=== PATIENT | female | born 1970 | race Caucasian/White ===

== ENCOUNTER 2021-04-17 14:10 | Outpatient (CLI) | payer OTHER ==
[2021-04-17] MEDS ORDERED: ATOR10TA9 PO (14:55)
[2021-04-17] MEDS ORDERED: Iron PO (14:55)
[2021-04-17] MEDS ORDERED: ESCI10TA97 PO (14:55)
[2021-04-17] MEDS ORDERED: LISI2.5T12 PO (14:55)
[2021-04-17] MEDS ORDERED: MINO50TA2 PO (14:55)
[2021-04-17] MEDS ORDERED: ARIP10TA33 PO (14:55)
[2021-04-17] MEDS ORDERED: METF500T17 PO (14:55)
[2021-04-17] MEDS ORDERED: FENO160T PO (14:55)
[2021-04-17] MEDS ORDERED: BUPR300T94 PO (14:55)
[2021-04-17 15:13] LABS: ALANINE AMINOTRANSFERASE 29 U/L (12-78); ALBUMIN 3.6 g/dL (3.4-5.0); ANION GAP 5 mmol/L (5-15); CHLORIDE 106 mmol/L (98-107); CREATININE 0.96 mg/dL (0.55-1.02)
[2021-04-17 15:18] LABS: ALKALINE PHOSPHATASE 51 U/L (45-117); BILIRUBIN,TOTAL 0.3 mg/dL (0.2-1.0); TOTAL PROTEIN 7.3 g/dL (6.4-8.2)
[2021-04-17 15:30] LABS: BASOPHILS % (AUTO) 1 % (0-1); EOSINOPHILS % (AUTO) 2 % (1-7); LYMPHOCYTES % (AUTO) 28 % (22-44); MEAN CORPUSCULAR HEMOGLOBIN 29.8 pg (27.0-34.8); MEAN CORPUSCULAR HGB CONC 33.2 g/dL (32.4-35.8); MEAN PLATELET VOLUME 8.3 fL (7.4-10.4); MONOCYTES % (AUTO) 7 % (2-9); NEUTROPHILS % (AUTO) 62 % (42-75); PLATELET COUNT 305 x10^3/uL (130-400); RED BLOOD COUNT 4.99 x10^6/uL (3.82-5.3); RED CELL DISTRIBUTION WIDTH 14.4 % (9.6-15.2)
[2021-04-23] MEDS ORDERED: MIDAZOLAM 1 MG/ML, 2ML ONE (12:44)
[2021-04-23] MEDS ORDERED: KETOROLAC 30 MG/1 ML ONE (12:44)
[2021-04-23] MEDS ORDERED: FENTANYL PF 250 MCG/5ML ONE ×2 (12:44→15:25)
[2021-04-23] MEDS ORDERED: BUPIVACAINE/PF 0.25% ONE ×2 (12:45)
[2021-04-23] MEDS ORDERED: NEOSTIGMINE 1 MG/ML, 10ML ONE (12:55)
[2021-04-23] MEDS ORDERED: PROPOFOL 10 MG/ML, 20ML ONE (12:55)
[2021-04-23] MEDS ORDERED: GLYCOPYRROLATE 0.2MG/1ML, 5ML ONE (12:55)
[2021-04-23] MEDS ORDERED: ONDANSETRON 2MG/ML, 2ML ONE (12:55)
[2021-04-23] MEDS ORDERED: ROCURONIUM 10MG/ML,5ML ONE (12:55)
[2021-04-23] MEDS ORDERED: DEXAMETHASONE 4 MG/ML, 1ML ONE (12:55)
[2021-04-23] MEDS ORDERED: CEFAZOLIN 1,000 MG ONE (12:55)
[2021-04-23] MEDS ORDERED: FENTANYL PF 100 MCG/2ML ONE (16:19)
== END 2021-04-17 23:59 | disposition home or self-care (01) ==
LOC: STAR 14:10
PROVIDERS: ATTEND Obstetrics & Gynecology
DX: Z01.818 Encounter for other preprocedural examination (principal); D49.59 Neoplasm of unspecified behavior of other genitourinary organ; D36.9 Benign neoplasm, unspecified site
CPT/HCPCS: 36415; 71046; 80053; 84702; 85025; 93005

== ENCOUNTER 2021-04-23 11:55 | Inpatient (IN) | payer OTHER ==
[~2021-04-23] VITALS: Ht 152.4 cm; Wt 83.1 kg
[~2021-04-23 11:55] MED LIST: ARIP10TA33 PO; ATOR10TA9 PO; BUPR300T94 PO; ESCI10TA97 PO; FENO160T PO; Iron PO; LISI2.5T12 PO; METF500T17 PO; MINO50TA2 PO
[2021-04-23] MEDS ORDERED: CHLORHEXIDINE 15 ML UDC PO ONE (12:30)
[2021-04-23] MEDS ORDERED: LACTATED RINGERS 1,000 ML IV SCH (12:30)
[2021-04-23 12:39] LABS: HCG UR SG 1.019 (1.003-1.030)
[2021-04-23] MEDS ORDERED: FENTANYL PF 100 MCG/2ML IV PRN (14:30)
[2021-04-23] MEDS ORDERED: MEPERIDINE/PF 25MG/0.5ML IVPush PRN (14:30)
[2021-04-23] MEDS ORDERED: HALOPERIDOL 5 MG/ML IV PRN (14:30)
[2021-04-23] MEDS ORDERED: LABETALOL 5MG/ML, 20ML IV PRN (14:30)
[2021-04-23] MEDS ORDERED: HYDROmorphone 1 MG/ML, 1ML INJ IVPush PRN (14:30)
[2021-04-23] MEDS ORDERED: morphine SULFATE 10 MG/ML, 1ML IVPush PRN (14:30)
[2021-04-23] MEDS ORDERED: ACETAMINOPHEN 325 MG TABLET PO PRN (14:30)
[2021-04-23] MEDS ORDERED: DEXTROSE 5% 250 ML IV SCH (14:30)
[2021-04-23] MEDS ORDERED: hydrALAzine 20 MG/ML, 1ML IV PRN (14:30)
[2021-04-23] MEDS ORDERED: OXYcodone 5 MG/5 ML ORAL.SOL UDC PO PRN ×2 (14:30→19:00)
[2021-04-23] MEDS ORDERED: PROMETHAZINE 25 MG/ML, 1ML IVPush PRN (14:30)
[2021-04-23 18:30] VITALS: BP 124/73
[2021-04-23] MEDS ORDERED: HYDROmorphone 2 MG/ML, 1ML IV PRN (19:00)
[2021-04-23] MEDS ORDERED: ONDANSETRON 2MG/ML, 2ML IV PRN (19:00)
[2021-04-23] MEDS ORDERED: KETOROLAC 30 MG/1 ML IV PRN (19:00)
[2021-04-23] MEDS: LACTATED RINGERS 1,000 ML IV SCH (21:47)
[2021-04-24 00:01] VITALS: BP 115/72
[2021-04-24 03:04] VITALS: BP 104/67
[2021-04-24] MEDS: LACTATED RINGERS 1,000 ML IV SCH ×2 (05:13→13:30)
[2021-04-24 07:54] VITALS: BP 97/60
[2021-04-24 13:36] VITALS: BP 99/61
== END 2021-04-24 17:34 | disposition home or self-care (01) | DRG 743 ==
LOC: ORIP 11:55 → 4NE 18:16
PROVIDERS: ADMIT Obstetrics & Gynecology; ATTEND Obstetrics & Gynecology
PROC: 0UT90ZZ Resection of Uterus, Open Approach (ICD-10-PCS; 2021-04-23)
PROC: 0UT70ZZ Resection of Bilateral Fallopian Tubes, Open Approach (ICD-10-PCS; principal; 2021-04-23 14:00)
DX: D25.9 Leiomyoma of uterus, unspecified (principal); D49.59 Neoplasm of unspecified behavior of other genitourinary organ; D36.9 Benign neoplasm, unspecified site; E11.9 Type 2 diabetes mellitus without complications; E66.9 Obesity, unspecified; Z20.822 Contact with and (suspected) exposure to COVID-19; Z83.3 Family history of diabetes mellitus; Z68.35 Body mass index [BMI] 35.0-35.9, adult
CPT/HCPCS: 36415; 81025; 82962; 85014; 85018; 87635; 88307; G0378; J0690; J1100; J1885; J2250; J2405; J2704; J2710; J3010; J7120